=== PATIENT | male | born 1950 | race Caucasian/White ===

== ENCOUNTER → 2020-07-05 | Outpatient (CLI) | payer MEDICARE, OTHER ==
[2020-07-05 09:45] LABS: BUN/CREATININE RATIO 6 (0-10)
[2020-07-06 10:14] LABS: HBSAG SCREEN Negative (Negative); HEP A AB, IGM Negative (Negative); HEP B CORE AB, IGM Negative (Negative); HEP C VIRUS AB >11.0 (0.0-0.9)
[2020-07-06 11:14] LABS: ALPHA-1-ANTITRYPSIN, SERUM 122 mg/dL (101-187)
[2020-07-06 14:15] LABS: MITOCHONDRIAL (M2) ANTIBODY <20.0 Units (0.0-20.0)
== END ==
LOC: CT 06-22 08:00
PROVIDERS: Internal Medicine Gastroenterology
DX: K70.31 Alcoholic cirrhosis of liver with ascites (principal); R74.8 Abnormal levels of other serum enzymes; K76.6 Portal hypertension; I86.8 Varicose veins of other specified sites
CPT/HCPCS: 36415; 80048; 80074; 82103; 82728; 83540; 83550; 86038; Q9967